=== PATIENT | male | born 1990 | race African-American/Black ===

== ENCOUNTER 2017-10-30 20:26 | Emergency (ER) | payer MEDICAID, OTHER ==
[~2017-10-30] VITALS: Ht 182.9 cm; Wt 72.6 kg
--- NOTE | 2017-10-30 20:42 | NUR ---
PT BB SELF FROM HOME WITH C/O OF GENERALIZED BODY PAIN 07/01 X1DAY S/P "BEING SICK WITH THE FLU." RESP EVEN AND NONE LABORED. SKIN WNL AND WARM TO TOUCH. NO S/S OF ACUTE DISTRESS NOTED. VSS. AWAITING MD FOR EVAL.
--- NOTE | 2017-10-30 22:23 | NUR ---
PT BECAME AGITATED AND ANGRY STATING "WHY THE FUCK IS THE DR NOT TREATING ME, IM DYING HERE." PT WAS GIVEN PRESCRITPIONS AND DISCHARGE INSTRUCTIONS, BUT REFUSED TO SIGN DISCHARGE PAPERWORK. PT AMBULATED WITH STEADY GAIT OUT OF ER.
--- NOTE | 2017-10-30 22:25 | NUR ---
Patient discharged to home in stable condition. Written and verbal after care instructions given. Patient verbalizes understanding of instruction.
[2017-10-30 22:27] VITALS: BP 124/71
== END 2017-10-30 22:28 | disposition home or self-care (01) ==
LOC: ER 20:35
DX: J11.1 Influenza due to unidentified influenza virus with other respiratory manifestations (principal); R50.9 Fever, unspecified
CPT/HCPCS: A4606; Z7610